=== PATIENT | male | born 1970 ===

== ENCOUNTER → 2017-06-29 | Day surgery (SDC) | payer OTHER ==
[~2017-06-29] VITALS: Ht 175.3 cm; Wt 86.2 kg
[~2017-06-29] MED LIST: BACITRACIN TOP OINT 15 GM TUBE ONE; BUPIVACAINE/EPINEPHRINE 0.25% 50 ML VIAL ONE; BUPIVACAINE/EPINEPHRINE 0.25% PF 10 ML VIAL ONE; CETI-1 PO; CHLORHEXIDINE GLUCONATE 2 % 1 PACK (2 CLOTHS) TOPICAL PRN; CIPROFLOXACIN 400 MG PREMIX 200 ML ONE; CIPROFLOXACIN/DEXT 400 MG/200 ML IV ONE; DEXAMETHASONE SOD PHOS 4 MG/ML VIAL IV ONE; DO NOT ADM ANY ANTICOAGULANT DRUGS PRN; GLYCOPYRROLATE 1 MG/5 ML SYRINGE IV PUSH ONE; LACTATED RINGER'S 1000 ML IV PRN; LIDOCAINE HCL 1% PF 5 ML SYRINGE OTHER ONE; METOPROLOL TARTRATE 25 MG TAB PO PRN; MIDAZOLAM HCL 2 MG/2 ML VIAL ONE; NEOSTIGMINE 5 MG/5 ML SYRINGE IV PUSH ONE; ONDANSETRON HCL 4 MG/2 ML VIAL IV PUSH ONE; POVIDONE IODINE 5% (ANTISEPSIS KIT) 4 APPLICATIONS EACH NARE PRN; PROPOFOL 200 MG/20 ML AMP IV ONE; ROCURONIUM INJ 50 MG/5 ML SYRINGE IV PUSH ONE; SODIUM CHLORID 0.9% 500 ML IV PRN; oxyCODONE/ACETAMINOPHEN 5 MG/325 MG TAB PO PRN
[2017-06-29 08:27] LABS: AUTOMATED NEUTROPHIL # 4.3 TH/MM3 (1.8-7.7); BASOPHIL # 0.1 TH/MM3 (0-0.2); BASOPHIL % 0.8 % (0.0-2.0); EOSINOPHIL # 0.3 TH/MM3 (0-0.4); EOSINOPHIL % 5.2 % (0.0-4.0); HEMATOCRIT 45.5 % (39.0-51.0); HEMOGLOBIN 15.7 GM/DL (13.0-17.0); LYMPH % 16.8 % (9.0-44.0); LYMPHOCYTE # 1.1 TH/MM3 (1.0-4.8); MEAN CELL VOLUME 94.2 FL (80.0-100.0); MEAN CORPUSCULAR HEMOGLOBIN 32.5 PG (27.0-34.0); MEAN CORPUSCULAR HGB CONC 34.5 % (32.0-36.0); MONO % 8.4 % (0.0-8.0); MONOCYTE # 0.5 TH/MM3 (0-0.9); NEUT % 68.8 % (16.0-70.0); PLATELET COUNT 231 TH/MM3 (150-450); RED BLOOD COUNT 4.83 MIL/MM3 (4.50-5.90); RED CELL DISTRIBUTION WIDTH 13.3 % (11.6-17.2); WHITE BLOOD COUNT 6.3 TH/MM3 (4.0-11.0)
[2017-06-29 13:00] VITALS: BP 154/92; PULSE 51; RESP 18; TEMP 97.8; O2SAT 97
--- NOTE | 2017-07-03 19:51 | PD.OP ---
Operative Report Date of Surgery: Jun 29, 2017 Preoperative Diagnosis: (1) Occipital mass (2) Mass of postauricular area Postoperative Diagnosis: (1) Occipital mass (2) Mass of postauricular area Procedure: Excision of occipital mass (52323) Excision of postauricular mass (44197) Anesthesia: General Surgeon: Houston Vázquez Sales Representative Consultant(s): . Operation and Findings: This is a 46-year-old male who presented to clinic with a right occipital and postauricular mass desiring excision. Risks benefits alternative treatments were discussed. All questions answered. Patient expressed understanding. Patient elected to assume the risks of operative excision of the above 2 masses. Informed consent was obtained. The surgical sites were marked in the preoperative holding bay. The patient was given antibiotics on-call to the operating room. The patient was taken to the operating room. All pressure points were padded. A surgical timeout was performed. After smooth induction of general anesthesia, the surgical site instilled with quarter percent Marcaine with epinephrine. The hair was shaved using clippers as needed. The surgical site was prepped and draped in the usual sterile fashion. A roughly 3 cm incision was made transversely just superior to the patient's hairline. Blunt dissection was used to free the lipomatous mass from the adjacent tissue. This mass was over 3 cm. This was removed and sent for permanent pathology. The surgical site was irrigated. Hemostasis was ensured. Attention was then turned to the postauricular mass. A roughly vertical 1 cm incision was made over the mass, so as to fall into the natural postauricular rhytides of the patient. The mass was excised. It appeared to contain sebum. It was sent for permanent pathology. It measured just over 1 cm. Surgical site was irrigated. Hemostasis was ensured. Both incisions were reapproximated using 3-0 Vicryl and a 3 point fashion to limit space. The skin was reapproximated using interrupted 4-0 nylon in a horizontal mattress fashion. The wounds were dressed using bacitracin Xeroform dry gauze and Tegaderm. The patient was awoken from anesthesia and arrived stable and doing well to the PACU. All needle sponge and his main counts were correct 2. Houston Vázquez MD Jul 03, 2017 19:50
== END | disposition home or self-care (01) ==
LOC: HSDC 07:32
PROVIDERS: ATTEND Student in an Organized Health Care Education/Training Program
DX: L72.0 Epidermal cyst (principal); D17.0 Benign lipomatous neoplasm of skin and subcutaneous tissue of head, face and neck; Z01.810 Encounter for preprocedural cardiovascular examination
CPT/HCPCS: 00300; 11441; 21012; 85025; 88304; J0744; J1100; J2250; J2405; J2710; J3010; J7120; 88307